=== PATIENT | male | born 1975 | race Asian ===

== ENCOUNTER 2023-01-02 08:03 | Outpatient (CLI) | payer OTHER, SELFPAY | END 2023-01-02 08:04 | disposition home or self-care (01) | PROVIDERS: PCP Family Medicine; Visit Provider Family Medicine | DX: E11.9 Type 2 diabetes mellitus without complications (principal); E78.5 Hyperlipidemia, unspecified; I10 Essential (primary) hypertension; N52.9 Male erectile dysfunction, unspecified | CPT/HCPCS: 80053; 80061; 82043; 82570; 84270; 84402; 84403 ==

== ENCOUNTER 2023-01-19 08:02 | Outpatient (CLI) | payer OTHER, SELFPAY | END 2023-01-19 08:03 | disposition home or self-care (01) | LOC: NFLDREF 01-21 06:36 | PROVIDERS: PCP Family Medicine; Referring Provider Family Medicine; Visit Provider Family Medicine | DX: R79.89 Other specified abnormal findings of blood chemistry (principal) | CPT/HCPCS: 84270; 84402; 84403 ==

== ENCOUNTER 2023-02-21 14:36 | Emergency (ER) | payer OTHER, SELFPAY ==
[2023-02-21] VITALS (7 sets, daily range): BP systolic 143–162; BP diastolic 94–100; PULSE 108–115; RESP 16; TEMP 36.3; O2SAT 96–98; BMI 37.6
--- NOTE | 2023-02-21 15:22 | ED.GENADULT ---
HPI - General Adult General Time Seen by Provider: 15:22 Date Seen: 02/21/23 Chief complaint: Unspecified Complaint, Adult Stated complaint: Blood in stool Time Seen by Provider: 02/21/23 15:11 Source: patient Mode of arrival: ambulatory Limitations: no limitations History of Present Illness HPI narrative: Tai is a 47-year-old male past medical history includes type 2 diabetes mellitus, hypertension, hyperlipidemia, hemorrhoids, presents emergency department via private car with rectal bleeding. Patient states he has a history of hemorrhoids in the past, he has had some rectal bleeding but he states that it is progressively got worse over the last few days, he feels there is blood bright red in the stool, and after he wipes, feels there is alot more blood, that fills the toilet after every bowel movement, he denies any rectal pain, no constipation, no abdominal pain. Patient had a colonoscopy on 03/19 here in [place] which was normal. Patient denies any dizziness or lightheadedness, he has had a cold recently is taking some Mucinex, no new medications. No other concerns at this time. Related Data Home Medications Medication Instructions Recorded Confirmed simvastatin 40 mg tablet 40 mg PO .Bedtime 08/31/22 01/02/23 albuterol sulfate 90 mcg/actuation g inhalation 12/19/22 01/02/23 aerosol inhaler aspirin 81 mg tablet,delayed 81 mg PO QDAY 01/02/23 01/02/23 release (Adult Low Dose Aspirin) clotrimazole-betamethasone 1 g topical 01/02/23 01/02/23 %-0.05 % topical cream Previous Rx's Medication Instructions Recorded scopolamine base 1 mg over 3 days 1 patch transdermal Q3D PRN motion 01/02/23 transdermal patch sickness #10 ea sildenafil 50 mg tablet 50 mg PO DIRECTED PRN sexual 01/02/23 activity #30 tabs metformin 500 mg tablet,extended 1,000 mg PO DAILY #180 tabs 01/04/23 release 24 hr testosterone (AndroGel) 2 pump topical QDAY #75 grams 01/08/23 lisinopril 2.5 mg tablet 2.5 mg PO DAILY #90 tabs 01/16/23 Allergies Allergy/AdvReac Type Severity Reaction Status Date / Time No Known Drug Allergies Allergy Verified 01/02/23 07:44 Review of Systems Status of ROS: Reports: 10 or more systems reviewed and unremarkable except as noted in History and below [facility] Medical History Erectile dysfunction ?N52.9 - Male erectile dysfunction, unspecified (ICD-10) Low testosterone in male ?R79.89 - Other specified abnormal findings of blood chemistry (ICD-10) Surgical History (Updated 08/25/22 @ 10:03 by Liliya Hayward) History of liver biopsy ?Z98.890 - Other specified postprocedural states (ICD-10) History of photorefractive keratectomy (PRK) (2000) ?Z98.890 - Other specified postprocedural states (ICD-10) Social History (Updated 08/25/22 @ 10:06 by Liliya Hayward) Narrative: adopted, does not drink alcohol, does not use illicit drugs, nonsmoker Smoking Status: Never smoker Do you use any of these nicotine containing products: None Non-prescribed substance use: denies use Exam Const: Vital Signs, click to edit/add: Vital Signs - 24 hr 02/21/23 14:55 02/21/23 15:14 02/21/23 15:15 Temperature 97.3 F L Pulse Rate 108 H 108 H Pulse Rate [Pulse Oximeter] 108 H Respiratory Rate 16 Blood Pressure 143/94 H Blood Pressure [Ri ght Upper Arm] 162/100 H Pulse Oximetry 97 96 96 Oxygen Delivery Me thod Room Air 02/21/23 15:16 02/21/23 15:30 02/21/23 15:31 Temperature Pulse Rate 108 H 111 H 114 H Pulse Rate [Pulse Oximeter] Respiratory Rate Blood Pressure 149/98 H Blood Pressure [Ri ght Upper Arm] Pulse Oximetry 96 97 97 Oxygen Delivery Me thod 02/21/23 15:45 Temperature Pulse Rate 115 H Pulse Rate [Pulse Oximeter] Respiratory Rate Blood Pressure Blood Pressure [Ri ght Upper Arm] Pulse Oximetry 98 Oxygen Delivery Me thod Common normals: no apparent distress and oriented x3 General appearance: cooperative Orientation/consciousness: Yes awake, Yes oriented to person, Yes oriented to place and Yes oriented to time HENMT: Common normals: normocephalic Head and scalp: normocephalic Mouth: oral and palatal mucosa normal Throat: posterior oropharynx normal Eye: Common normals: PERRL and EOMs intact bilaterally General eye: normal appearance of both eyes Pupil: PERRL Neck & C-Spine: Common normals: full ROM, no lymphadenopathy and supple Chest: Common normals: inspection of chest normal Resp: Common normals: normal respiratory effort Cardio: Common normals: regular rate, regular rhythm, S1 normal heart sound and S2 normal heart sound Rate: regular rate Rhythm: regular rhythm Heart sounds: S1 normal and S2 normal GI: Common normals: Normal to inspection, nondistended, normoactive bowel sounds present, soft to palpation and non-tender Palpation: soft : Common normals: no CVA tenderness Bladder/kidney exam: no CVA tenderness Other: Rectal exam: No appreciable external hemorrhoids, no fissure, no gross blood per rectum. Back & Pelvis: Common normals: no CVA tenderness Extremity: Common normals: full ROM Neuro: Common normals: oriented x3 and moves all extremities Sensorium/orientation: awake, oriented to person, oriented to place and oriented to time Course Course Hospital Course: Workup will include CBC and CMP, bedside Hemoccult testing was mildly positive, vitals are stable at this time, patient is asymptomatic, recent colonoscopy was normal 03/19. Will make sure no new anemia, rectal exam showed no gross blood per rectum, no appreciable external hemorrhoids. Differential diagnosis include Crohn's disease, gastric ulcer, duodenal ulcer, intussusception lower GI bleeding, bleeding from hemorrhoids, anal fissure, angiodysplasia inflammatory bowel disease, dizziness chair E, ulcerative colitis, Meckel's diverticulum, HSP, colorectal polyps as well as life-threatening hypovolemia from bleeding and cancer. Reevaluation(s) Reevaluation #1: Patient was updated on his lab results, hemoglobin of 15.4, labs were otherwise within normal limits, patient had no reoccurrence of bleeding in the emergency department, will continue to monitor at this time, he also had a normal colonoscopy less than a year ago, will have him follow up with his primary care provider Dr. Arnett. All questions answered, reasons to return given. Time: 17:15 Vital Signs Vital signs: Initial Vital Signs Temperature 97.3 F L 02/21/23 14:55 Temperature Source Temporal Artery Scan 02/21/23 14:55 Pulse Rate 108 H 02/21/23 14:55 Blood Pressure 162/100 H 02/21/23 14:55 Blood Pressure Mean 120 H 02/21/23 14:55 Blood Pressure Position Sitting 02/21/23 14:55 Pulse Oximetry 97 02/21/23 14:55 Oxygen Delivery Method Room Air 02/21/23 14:55 Vital Signs Temperature 97.3 F L 02/21/23 14:55 Pulse Rate 108 H 02/21/23 14:55 Blood Pressure 162/100 H 02/21/23 14:55 Pulse Oximetry 97 02/21/23 14:55 Oxygen Delivery Method Room Air 02/21/23 14:55 Temperature 97.3 F L 02/21/23 14:55 Pulse Rate 115 H 02/21/23 15:45 Respiratory Rate 16 02/21/23 15:15 Blood Pressure 149/98 H 02/21/23 15:31 Pulse Oximetry 98 02/21/23 15:45 Oxygen Delivery Method Room Air 02/21/23 14:55 Medical Decision Making Lab Data Labs: Lab Results 02/21/23 Range/Units 16:08 WBC 8.10 (4.50-11.00) K/uL RBC 5.40 (4.30-5.90) m/uL Hgb 15.4 (13.5-17.5) gm/dL Hct 47.4 (37.0-53.0) % MCV 88 (80-100) fL MCH 29 (26-34) pg MCHC 33 (32-36) gm/dL RDW Coeff of Taj 11.2 L (11.5-15.5) % Plt Count 180 (140-440) K/uL Neut % (Auto) 64.6 (42.0-72.0) % Lymph % (Auto) 22.7 (20-44) % O'Brien % (Auto) 7.9 (0.0-11.0) % Eos % (Auto) 3.5 (0.0-7.0) % Baso % (Auto) 0.6 (0.0-3.0) % Neut # (Auto) 5.23 (1.7-7.0) K/uL Lymph # (Auto) 1.84 (0.90-2.90) K/uL O'Brien # (Auto) 0.60 (0.00-0.90) K/UL Eos # (Auto) 0.28 (0.00-0.50) K/uL Baso # (Auto) 0.05 (0.00-0.30) K/uL Sodium 136 (135-149) mmol/L Potassium 4.1 (3.6-5.1) mmol/L Chloride 101 (96-114) mmol/L Carbon Dioxide 28 (20-32) mmol/L BUN 10 (5-24) mg/dL Creatinine 0.6 (0.5-1.5) mg/dL Estimated Creat Clear 142.30 Estimated GFR 120 ml/min Glucose 320 H (60-115) mg/dL Calcium 9.0 (8.4-10.6) mg/dL Total Bilirubin 0.6 (0.1-1.5) mg/dL AST 46 H (12-35) U/L ALT 70 H (4-50) U/L Alkaline Phosphatase 82 (40-150) U/L Total Protein 7.5 (6.0-8.3) g/dL Albumin 4.3 (3.3-5.0) g/dL Discharge Plan Discharge Clinical Impression: Rectal bleeding Patient Disposition: Home, Self-Care Condition: Improved Instructions: Rectal Bleeding (ED) Additional Instructions: To follow up with Johnny Arnett MD in the next 7-10 days as needed, return if worsening symptoms. Prescriptions: No Action clotrimazole-betamethasone 1-0.05 % cream topical aspirin [Adult Low Dose Aspirin] 81 mg tablet,delayed release (DR/EC) 81 mg PO QDAY scopolamine base 1 mg over 3 days patch 3 day 1 patch transdermal Q3D PRN (Reason: motion sickness) Qty: 10 1RF sildenafil 50 mg tablet 50 mg PO DIRECTED PRN (Reason: sexual activity) Qty: 30 3RF Rx Instructions: TAKE 1 TAB 1 HR PRIOR TO INTERCOURSE albuterol sulfate 90 mcg/actuation HFA aerosol inhaler inhalation Patient Comments: INHALE 2 PUFFS EVERY 4 HOURS UNTIL DIRECTED TO STOP simvastatin 40 mg tablet 40 mg PO .Bedtime metformin 500 mg tablet extended release 24 hr 1,000 mg PO DAILY Qty: 180 1RF testosterone [AndroGel] 20.25 mg/1.25 gram (1.62 %) gel in metered-dose pump 2 pump topical QDAY Qty: 75 1RF Rx Instructions: apply 1 pump amount over max area of EACH upper arm and shoulder lisinopril 2.5 mg tablet 2.5 mg PO DAILY Qty: 90 0RF Follow Up/Referrals: Johnny Arnett MD [Primary Care Provider] - Stand Alone Forms: ClaimIt Info Instructions
[2023-02-21 16:21] LABS: Basophils Absolute Auto 0.05 K/uL (0.00-0.30); Basophils Percent Auto 0.6 % (0.0-3.0); Eosinophils Absolute Auto 0.28 K/uL (0.00-0.50); Eosinophils Percent Auto 3.5 % (0.0-7.0); Hematocrit 47.4 % (37.0-53.0); Hemoglobin* 15.4 gm/dL (13.5-17.5); Immature Granulocytes Abs Auto 0.06 K/uL (0.00-0.30); Immature Granulocytes Pct Auto 0.7 %; Lymphocytes Absolute Auto 1.84 K/uL (0.90-2.90); Lymphocytes Percent Auto 22.7 % (20-44); Mean Corpuscular HGB Conc 33 gm/dL (32-36); Mean Corpuscular Hemoglobin 29 pg (26-34); Mean Corpuscular Volume 88 fL (80-100); Monocytes Percent Auto 7.9 % (0.0-11.0); Neutrophils Absolute Auto 5.23 K/uL (1.7-7.0); Neutrophils Percent Auto 64.6 % (42.0-72.0); Platelet Count* 180 K/uL (140-440); RDW Coefficient of Variation % 11.2 % (11.5-15.5)
[2023-02-21 16:36] LABS: Albumin* 4.3 g/dL (3.3-5.0); Chloride* 101 mmol/L (96-114)
[2023-02-21 16:37] LABS: Potassium* 4.1 mmol/L (3.6-5.1); Sodium* 136 mmol/L (135-149)
[2023-02-21 16:39] LABS: Alkaline Phosphatase* 82 U/L (40-150); Aspartate Amino Transferase* 46 U/L (12-35); Bilirubin Total* 0.6 mg/dL (0.1-1.5); Blood Urea Nitrogen* 10 mg/dL (5-24); Carbon Dioxide* 28 mmol/L (20-32); Creatinine* 0.6 mg/dL (0.5-1.5); Estimated Glomerular Filt Rate 120 ml/min; Total Protein* 7.5 g/dL (6.0-8.3)
[2023-02-21 16:40] LABS: Alanine Aminotransferase* 70 U/L (4-50); Glucose* 320 mg/dL (60-115)
[2023-02-21 16:41] LABS: Slide Review Reflex No
== END 2023-02-21 17:01 | disposition home or self-care (01) ==
PROVIDERS: Emergency Provider Student in an Organized Health Care Education/Training Program; PCP Family Medicine
DX: K62.5 Hemorrhage of anus and rectum (principal)
CPT/HCPCS: 36415; 80053; 85025; 99283

== ENCOUNTER 2023-06-08 08:31 | Outpatient (CLI) | payer OTHER, SELFPAY | END 2023-06-08 08:32 | disposition home or self-care (01) | LOC: NFLDREF 06-09 09:56 | PROVIDERS: PCP Family Medicine; Referring Provider Family Medicine; Visit Provider Family Medicine | DX: E11.9 Type 2 diabetes mellitus without complications (principal); E66.9 Obesity, unspecified; R79.89 Other specified abnormal findings of blood chemistry; I10 Essential (primary) hypertension; E78.5 Hyperlipidemia, unspecified; Z11.52 Encounter for screening for COVID-19; R74.8 Abnormal levels of other serum enzymes | CPT/HCPCS: 80053; 84153; 84270; 84402; 84403 ==

== ENCOUNTER 2023-11-21 08:00 | Outpatient (CLI) | payer OTHER, SELFPAY | END 2023-11-21 08:01 | disposition home or self-care (01) | LOC: NFLDREF 11-23 12:42 | PROVIDERS: PCP Family Medicine; Referring Provider Family Medicine; Visit Provider Family Medicine | DX: R79.89 Other specified abnormal findings of blood chemistry (principal); I10 Essential (primary) hypertension | CPT/HCPCS: 80053; 84270; 84402; 84403 ==

== ENCOUNTER 2024-06-16 09:57 | Outpatient (CLI) | payer OTHER, SELFPAY | END 2024-06-16 09:58 | disposition home or self-care (01) | PROVIDERS: PCP Family Medicine; Visit Provider Family Medicine | DX: E78.5 Hyperlipidemia, unspecified (principal); I10 Essential (primary) hypertension; R79.89 Other specified abnormal findings of blood chemistry | CPT/HCPCS: 80053; 80061; 82043; 82306; 82570; 82607; 84270; 84402; 84403; 84443; G0103 ==

== ENCOUNTER 2025-02-25 08:06 | Outpatient (CLI) | payer OTHER, SELFPAY | END 2025-02-25 08:07 | disposition home or self-care (01) | LOC: NFLDREF 02-28 00:07 | PROVIDERS: PCP Family Medicine; Referring Provider Family Medicine; Visit Provider Family Medicine | DX: E78.5 Hyperlipidemia, unspecified (principal); I10 Essential (primary) hypertension; E11.9 Type 2 diabetes mellitus without complications; N52.9 Male erectile dysfunction, unspecified; E55.9 Vitamin D deficiency, unspecified; Z79.84 Long term (current) use of oral hypoglycemic drugs | CPT/HCPCS: 80053; 80061; 82043; 82306; 82570; 84270; 84402; 84403 ==

== ENCOUNTER 2025-07-31 08:05 | Outpatient (CLI) | payer OTHER, SELFPAY | END 2025-07-31 08:06 | disposition home or self-care (01) | LOC: NFLDREF 08-03 11:53 | PROVIDERS: PCP Family Medicine; Referring Provider Family Medicine; Visit Provider Family Medicine | DX: R79.89 Other specified abnormal findings of blood chemistry (principal); E11.9 Type 2 diabetes mellitus without complications; E78.5 Hyperlipidemia, unspecified; R53.83 Other fatigue | CPT/HCPCS: 80053; 80061; 84270; 84402; 84403; G0103 ==

== ENCOUNTER 2025-08-06 09:44 | Outpatient (CLI) | payer OTHER, SELFPAY | END 2025-08-06 09:45 | disposition home or self-care (01) | LOC: NFLDREF 23:17 | PROVIDERS: PCP Family Medicine; Referring Provider Family Medicine; Visit Provider Family Medicine | DX: E11.9 Type 2 diabetes mellitus without complications (principal) | CPT/HCPCS: 82043; 82570 ==